=== PATIENT | male | born 1955 | race Caucasian/White ===

== ENCOUNTER 2024-06-19 07:48 | Day surgery (SDC) | payer MEDICARE, BC ==
[~2024-06-19 07:48] MED LIST: Midazolam 1 MG/ML 2 ML SDV ONE; Propofol 200 MG/20 ML SDV ONE; fentaNYL 50 MCG/ML SDV ONE
[2024-06-19] MEDS: Sodium Chloride 0.9% 1,000 ML IV SCH (08:17)
== END 2024-06-19 10:52 | disposition home or self-care (01) ==
LOC: JP.SDS 07:48
PROVIDERS: ATTEND Surgery
DX: Z12.11 Encounter for screening for malignant neoplasm of colon (principal); I10 Essential (primary) hypertension; J45.909 Unspecified asthma, uncomplicated; G47.33 Obstructive sleep apnea (adult) (pediatric); E78.5 Hyperlipidemia, unspecified; E66.9 Obesity, unspecified; E11.9 Type 2 diabetes mellitus without complications
CPT/HCPCS: G0121; J2250; J2704; J3010; J7030

== ENCOUNTER 2025-02-12 02:14 | Emergency (ER) | payer MEDICARE, BC ==
[2025-02-12] MEDS ORDERED: Sodium Chloride 0.9% 10 ML Syringe FLUSH PRN (02:50)
[2025-02-12 02:57] LABS: BASOPHILS ABSOLUTE AUTO 0.04 K/uL (0.00-0.10); BASOPHILS PERCENT AUTO 0.3 % (0.1-1.3); EOSINOPHILS PERCENT AUTO 0.1 % (0.0-5.4); HEMATOCRIT 42.1 % (38.4-49.7); HEMOGLOBIN 14.1 g/dL (12.9-16.9); LYMPHOCYTES ABSOLUTE AUTO 0.61 K/uL (0.8-3.3); LYMPHOCYTES PERCENT AUTO 4.5 % (11.4-47.7); MEAN CORPUSCULAR HEMOGLOBIN 28.3 pg (31.6-35.5); MEAN CORPUSCULAR HGB CONC 33.5 g/dL (31.6-35.5); MEAN CORPUSCULAR VOLUME 84.5 fL (81.4-99.0); MONOCYTES ABSOLUTE AUTO 0.57 K/uL (0.20-0.90); MONOCYTES PERCENT AUTO 4.2 % (3.3-12.6); NEUTROPHILS ABSOLUTE AUTO 11.86 K/uL (1.0-7.6); NEUTROPHILS PERCENT AUTO 87.9 % (40.0-78.1); PLATELET COUNT,PLT 238 K/uL (130-375); RED BLOOD CELL COUNT 4.98 M/uL (4.14-5.76); WHITE BLOOD CELL COUNT,WBC 13.5 K/uL (3.2-11.0)
[2025-02-12 02:58] LABS: EOSINOPHILS ABSOLUTE AUTO 0.01 K/uL (0.00-0.40)
[2025-02-12] MEDS: methylPREDNISolone Sodium Succinate 125 MG/2 ML SDV IM ONE (03:08)
[2025-02-12] MEDS: Albuterol 0.083% 2.5 MG/3 ML Neb Soln NEB ONE (03:09)
[2025-02-12] MEDS: Albuterol/Ipratropium 3.0-0.5 MG/3 ML Neb Soln NEB ONE (03:09)
[2025-02-12] MEDS: methylPREDNISolone Sodium Succinate 125 MG/2 ML SDV IVPUSH ONE (03:10)
[2025-02-12 03:25] LABS: A/G RATIO 0.6 (1.2-2.2); ALANINE AMINOTRANSFERASE,ALT 29 U/L (12-78); ALBUMIN 2.4 g/dL (3.4-5.0); ALKALINE PHOSPHATASE 63 U/L (46-116); ASPARTATE AMNIOTRANSFERASE,AST 22 U/L (15-37); BILIRUBIN TOTAL 0.5 mg/dL (0.2-1.0); BLOOD UREA NITROGEN,BUN 25 mg/dL (7-18); CALCIUM 9.7 mg/dL (8.5-10.1); CARBON DIOXIDE,CO2 19 mmol/L (21-32); CHLORIDE,CL 104 mmol/L (100-108); CREATININE 0.9 mg/dL (0.8-1.3); EST CRCL DRUG DOSING (CG) 78.86 mL/min; ESTIMATED GFR 92 mL/min (>60); GLUCOSE RANDOM 170 mg/dL (74-106); POTASSIUM,K 3.7 mmol/L (3.6-5.2); PRO B-TYPE NATRIUR PEPT,BNPPRO 459 pg/mL (5-125); PROTEIN TOTAL,TP 6.6 g/dL (6.4-8.2); SODIUM,NA 140 mmol/L (140-148); TROPONIN I HIGH SENSITIVITY 16.6 pg/mL (<=60.3)
[2025-02-12 03:34] LABS: ANION GAP 20.7 mmol/L (5.0-14.0)
[2025-02-12] MEDS: Iopamidol 612 MG/ML 100 ML Bottle IV ONE (04:36)
[2025-02-12] MEDS: Sodium Chloride 0.9% 100 ML IV ONE (04:36)
[2025-02-12] MEDS: Amoxicillin/Clavulanate K 875-125 MG Tab PO ONE (05:59)
[2025-02-12] MEDS: Azithromycin 250 MG Tab PO ONE (05:59)
== END 2025-02-12 06:17 | disposition home or self-care (01) ==
LOC: JP.ED 02:14
DX: J18.9 Pneumonia, unspecified organism (principal); J45.909 Unspecified asthma, uncomplicated; I10 Essential (primary) hypertension; E11.9 Type 2 diabetes mellitus without complications; M19.90 Unspecified osteoarthritis, unspecified site; Z88.8 Allergy status to other drugs, medicaments and biological substances; Z79.899 Other long term (current) drug therapy; Z79.82 Long term (current) use of aspirin; Z79.4 Long term (current) use of insulin; Z79.84 Long term (current) use of oral hypoglycemic drugs
CPT/HCPCS: 36415; 71275; 80053; 83880; 84484; 85025; 85379; 93005; 93010; 96374; 99284; 99285; A9270; J2919; Q9967